=== PATIENT | male | born 1990 | race Caucasian/White ===

== ENCOUNTER 2018-04-23 20:59 | Emergency (ER) | payer OTHER ==
--- NOTE | 2018-04-23 21:06 | PDOC ---
Rapid Medical Evaluation Time Seen by Provider: 04/23/18 21:03 Medical Evaluation: 04/23/18 21:03 I have performed a brief in-person evaluation of this patient. The patient presents with a chief complaint of: pain to left forearm. Patient reports being hit by ambulette door this afternoon. States pain with weight bearing Pertinent physical exam findings: NAD even and unlabored breathing EXT: full ROM, non tender forearm I have ordered the following: xray of left forearm The patient will proceed to the ED for further evaluation. Discharge Disposition - Diagnosis Arm injury - Referrals - Patient Instructions - Post Discharge Activity
[2018-04-23 21:10] VITALS: BP 126/87; PULSE 82; TEMP 98.1; BMI 22.3
--- NOTE | 2018-04-23 22:31 | PDOC ---
History of Present Illness - General Chief Complaint: Injury Stated Complaint: INJURY ON THE JOB Time Seen by Provider: 04/23/18 21:03 - History of Present Illness Initial Comments: 04/23/18 22:29 28-year-old male without comorbidities presents for evaluation of left forearm pain. He states while on the job today. Door of the ambulance him and his left forearm. He points to the anterior lateral aspect of the left forearm just below the elbow. Past History - Past Medical History Allergies/Adverse Reactions: Allergies Allergy/AdvReac Type Severity Reaction Status Date / Time No Known Allergies Allergy Verified 04/23/18 21:09 Home Medications: Ambulatory Orders NK [No Known Home Medication] 04/23/18 COPD: No - Suicide/Smoking/Psychosocial Hx Smoking History: Never smoked Review of Systems - Review of Systems Musculoskeletal: Yes: See HPI *Physical Exam - Vital Signs Last Vital Signs Temp Pulse Resp BP Pulse Ox 98.1 F 82 18 126/87 100 04/23/18 21:09 04/23/18 21:09 04/23/18 21:09 04/23/18 21:09 04/23/18 21:09 - Physical Exam Comments: 04/23/18 22:30 There is minimal swelling at the anterior lateral aspect of the left forearm just below the elbow. There is mild tenderness. Compartments are soft and nontender. There is full supination and pronation flexion and extension of the elbow as well as flexion and extension of the wrist without pain or discomfort. There are no gross sensorimotor deficits. He is neurovascularly intact. Moderate Sedation - Procedure Monitoring Vital Signs: Procedure Monitoring Vital Signs Temperature 98.1 F 04/23/18 21:09 Pulse Rate 82 04/23/18 21:09 Respiratory Rate 18 04/23/18 21:09 Blood Pressure 126/87 04/23/18 21:09 O2 Sat by Pulse Oximetry (%) 100 04/23/18 21:09 *DC/Admit/Observation/Transfer Diagnosis at time of Disposition: Arm injury, Contusion of forearm, left - Discharge Dispostion Disposition: HOME Condition at time of disposition: Stable Decision to Admit order: No - Referrals Referrals: Mendoza Zamora DO [Staff Physician] - - Patient Instructions Printed Discharge Instructions: Contusion Additional Instructions: Tylenol and Motrin as directed for pain. Return to the emergency room for worsening symptoms. Follow-up with orthopedic surgery in 1-2 days for further evaluation and treatment options. - Post Discharge Activity Forms/Work/School Notes: Back to Work
== END 2018-04-23 22:54 | disposition home or self-care (01) ==
LOC: JERFT 20:59
DX: S50.12XA Contusion of left forearm, initial encounter (principal); V86.41XA Person injured while boarding or alighting from ambulance or fire engine, initial encounter; Y93.89 Activity, other specified; Y92.89 Other specified places as the place of occurrence of the external cause; Y99.0 Civilian activity done for income or pay
CPT/HCPCS: 73090-TC-LT-FY; 99281-25

== ENCOUNTER 2018-09-08 16:34 | Emergency (ER) | payer OTHER ==
[2018-09-08 16:56] VITALS: BP 124/73; PULSE 79; TEMP 98.1; BMI 28.3
--- NOTE | 2018-09-08 17:36 | PDOC ---
History of Present Illness - General Chief Complaint: Pain Stated Complaint: EMS Time Seen by Provider: 09/08/18 17:01 History Source: Patient Exam Limitations: No Limitations Past History - Travel Traveled outside of the country in the last 30 days: No Close contact w/someone who was outside of country & ill: No - Past Medical History Allergies/Adverse Reactions: Allergies Allergy/AdvReac Type Severity Reaction Status Date / Time No Known Allergies Allergy Verified 04/23/18 21:09 Home Medications: Ambulatory Orders NK [No Known Home Medication] 04/23/18 CVA: No COPD: No Other medical history: eczema - Surgical History Cholecystectomy: No Gastric Stapling: No GI Surgery: No - Suicide/Smoking/Psychosocial Hx Smoking History: Never smoked Review of Systems - Review of Systems Able to Perform ROS?: Yes Comments:: 09/08/18 17:29 CONSTITUTIONAL: Absent: fever, chills, diaphoresis, generalized weakness, malaise, loss of appetite GENITOURINARY: Absent: dysuria, frequency, urgency, hesitancy, hematuria, flank pain, genital pain MUSCULOSKELETAL: Present: R groin pain Absent: myalgia, arthralgia, joint swelling SKIN: Absent: rash, itching, pallor NEUROLOGIC: Absent: headache, focal weakness or paresthesias, dizziness, unsteady gait, seizure, mental status changes, bladder or bowel incontinence PSYCHIATRIC: Absent: anxiety, depression, suicidal or homicidal ideation, hallucinations. Is the patient limited Korean proficient: No *Physical Exam - Vital Signs Last Vital Signs Temp Pulse Resp BP Pulse Ox 98.1 F 79 20 124/73 99 09/08/18 16:54 09/08/18 16:54 09/08/18 16:54 09/08/18 16:54 09/08/18 16:54 - Physical Exam Comments: 09/08/18 17:30 GENERAL: The patient is awake, alert, and fully oriented, in no acute distress. HEAD: Normal with no signs of trauma. EYES: Pupils equal, round and reactive to light, extraocular movements intact, sclera anicteric, conjunctiva clear. EXTREMITIES: TTP of the R groin where the adductor muscles attach to the pelvis. Normal range of motion, no edema. NEUROLOGICAL: Normal speech, normal gait. PSYCH: Normal mood, normal affect. SKIN: Warm, Dry, normal turgor, no rashes or lesions noted. Medical Decision Making - Medical Decision Making 09/08/18 17:36 The patient is a 28-year-old male no past medical history who presents to the ER today with right-sided groin pain. The patient works for [employer] states he felt a pull after lowering the stretcher down with the patient.he states that he took 2 Aleve with some relief of his symptoms. Denies fevers, chills, numbness and tingling and weakness to the affected extremity A/P: Groin strain Exam tender to palpation in the right-sided hip abductor muscles where they meet the pelvis. The abdomen is soft nontender with no rebound guarding or tenderness. No evidence of hernia at this time. Most likely a groin strain, treat symptomatically with naproxen and heat Discharge home with orthopedic follow-up I discussed the physical exam findings, ancillary test results and final diagnoses with the patient. I answered all of the patient's questions. The patient was satisfied with the care received and felt comfortable with the discharge plan and treatment plan. The Patient agrees to follow up with the primary care physician/specialist within 24-72 hours. Return precautions were given. *DC/Admit/Observation/Transfer Diagnosis at time of Disposition: Groin strain Qualifiers: Encounter type: initial encounter Laterality: right Qualified Code(s): S76.211A - Strain of adductor muscle, fascia and tendon of right thigh, initial encounter - Discharge Dispostion Disposition: HOME Condition at time of disposition: Stable Decision to Admit order: No - Referrals Referrals: Wali Sibley MD [Staff Physician] - - Patient Instructions Printed Discharge Instructions: DI for Groin Strain Additional Instructions: You were evaluated for your groin pain You most likely strained your groin Continue taking the naproxen as directed You may apply heat to the area to help with the pain Follow up with orthopedics should your symptoms persist in one week You may also return to the ER for re-evaluation at any time Call this number for help with your insurance. [facility] [address], [place] - Post Discharge Activity Forms/Work/School Notes: Back to Work
== END 2018-09-08 18:03 | disposition home or self-care (01) ==
LOC: JERFT 16:34
DX: S76.211A Strain of adductor muscle, fascia and tendon of right thigh, initial encounter (principal); X50.0XXA Overexertion from strenuous movement or load, initial encounter; Y93.89 Activity, other specified; Y92.89 Other specified places as the place of occurrence of the external cause; Y99.0 Civilian activity done for income or pay
CPT/HCPCS: 99281-25